=== PATIENT | female | born 1995 | race Caucasian/White ===

== ENCOUNTER 2023-08-20 12:40 | Outpatient (CLI) | payer OTHER, SELFPAY ==
--- NOTE | 2023-08-20 13:00 | CRLHL7_ITS ---
For Patients: As a result of the Century Cures Act, medical imaging exams and procedure reports are released immediately into your electronic medical record. You may view this report before your referring provider. If you have questions, please contact your health care provider. INDICATION: Evaluate anatomy. COMPARISON: none TECHNIQUE: Real time valero scale imaging of the fetus was performed as well as color Doppler analysis of the umbilical vessels. FINDINGS: Sonographic imaging demonstrates a single living intrauterine gestation. Fetus demonstrates a regular cardiac rate of 152 beats per minute. Fetus has a variable position. The placenta lies posteriorly without evidence of placenta previa. Amniotic fluid volume appears normal. Single deepest vertical pocket: 5.8 cm. The cervix is closed and measures 4.1 cm in length. The composite ultrasound gestational age is calculated at 20 weeks 2 days with an estimated sonographic due date of 01/05/2024. The estimated weight is 403 grams which lies at the 89th %. The following biometric measurements were obtained: Biparietal diameter: 4.6 cm/20 weeks 0 days 39th% Head circumference: 17.6 cm/20 weeks 1 day 34th% Abdominal circumference: 16.7 cm/21 weeks 5 days 86th% Femur length: 3.5 cm/20 week 6 days 63rd% The HC/AC ratio measures: 1.06 range (1.07-1.25) On anatomic survey, there is a normal appearance of the cerebral ventricles, cavum septi pellucidi, cisterna magna and cerebellum. The nose, lips, and facial profile appear normal. The cervical, thoracic and lumbar spine are well visualized and appear normal. There is a normal four-chamber heart view and the left and right ventricular outflow tracts appear normal. The diaphragm and stomach appear normal. The kidneys and bladder also appear normal. There is a normal three-vessel cord and cord insertion site. The four extremities appear normal. IMPRESSION: Normal OB ultrasound exam with concordance of clinical and sonographic dating. No intrinsic abnormalities noted on anatomic survey. Dictated by Ant Kaba MD @ 08/20/2023 3:11:28 PM (Electronically Signed)
== END 2023-08-20 12:41 | disposition home or self-care (01) ==
LOC: US 12:41
PROVIDERS: Visit Provider Advanced Practice Midwife
DX: Z34.92 Encounter for supervision of normal pregnancy, unspecified, second trimester (principal); Z3A.20 20 weeks gestation of pregnancy
CPT/HCPCS: 76805

== ENCOUNTER 2023-08-27 10:51 | Outpatient (CLI) | payer OTHER, SELFPAY ==
[2023-08-27 11:10] VITALS: RESP 18; TEMP 37.3
[2023-08-27 11:15] VITALS: PULSE 111; O2SAT 95
[2023-08-27 11:16] VITALS: BP 107/59; PULSE 115
[2023-08-27 12:00] LABS: Appearance Urine Clear (Clear); Bilirubin Urine Negative (Negative); Blood Urine Negative (Negative); Color Urine Yellow (Yellow); Glucose Urine Negative (Negative); Ketones Urine 2+ (Negative); Leukocyte Esterase Urine Trace (Negative); Nitrite Urine Negative (Negative); Protein Urine Negative (Negative); Specific Gravity Urine 1.015 (1.000-1.030); Urobilinogen Urine 0.2 (0.2-1.0)
[2023-08-27] MEDS: LACTATED RINGERS 1000 ML 1,000 ML IV (12:03)
[2023-08-27 12:21] LABS: RBC Urine 0-2 (0-2); WBC Urine 0-2 (0-5)
[2023-08-27 12:37] LABS: Amnisure Rom* Negative
[2023-08-27 13:02] LABS: PCR FLU A POSITIVE PCR FLU A (Negative); PCR FLU B Negative PCR FLU B (Negative); PCR RSV Negative PCR RSV (Negative); SARS PCR* Negative SARS-CoV-2 (Negative)
[2023-08-27 13:17] VITALS: BP 102/59; PULSE 98; RESP 16; TEMP 37
[2023-08-27 13:18] VITALS: PULSE 90; O2SAT 100
--- NOTE | 2023-08-27 14:32 | PC.OBNST ---
NST Note NST Note Start: 08/27/23 11:17 Freq: ONCE Status: Active Protocol: Document 08/27/23 14:22 MMB (Rec: 08/27/23 14:25 MMB [id number]) NST Note 2 Para (# of births) 1 EDC 01/05/24 Gestational Age In Weeks & Days 21 Weeks & 2 Days Patient Presented with Complaint(s) of Contractions/cramping,Leaking fluid,Other Other Complaints body aches Reactive No Appropriate for Gestational Age Yes RN Vinny Blount RN Date 08/27/23 Reactive No Appropriate for Gestational Age Yes LIZ Rajput RN OB NST charge Yes Complete NST Note via Write Note Yes The provider's electronic signature indicates the NST is reactive/appropriate for gestational age. *Note to provider: If an addendum is required, open the patient's chart and click on the note under the Nurse/Allied Health tab.
== END 2023-08-27 13:40 | disposition home or self-care (01) ==
LOC: OB OUT 10:53 → OB 10:53
PROVIDERS: Visit Provider Advanced Practice Midwife
DX: O47.02 False labor before 37 completed weeks of gestation, second trimester (principal); Z3A.21 21 weeks gestation of pregnancy
CPT/HCPCS: 59025; 81003; 81015; 84112; 87086; 87631; G0463; J7120

== ENCOUNTER 2023-10-13 10:03 | Outpatient (CLI) | payer OTHER, SELFPAY | END 2023-10-13 10:04 | disposition home or self-care (01) | LOC: NFLDREF 10-18 06:47 | PROVIDERS: Visit Provider Advanced Practice Midwife | DX: Z34.83 Encounter for supervision of other normal pregnancy, third trimester (principal) | CPT/HCPCS: 86592 ==

== ENCOUNTER 2023-11-09 14:17 | Outpatient (CLI) | payer OTHER, SELFPAY | END 2023-11-09 14:18 | disposition home or self-care (01) | PROVIDERS: PCP Advanced Practice Midwife; Visit Provider Advanced Practice Midwife | DX: O99.713 Diseases of the skin and subcutaneous tissue complicating pregnancy, third trimester (principal); L29.9 Pruritus, unspecified; Z3A.31 31 weeks gestation of pregnancy | CPT/HCPCS: 82239; 84450; 84460 ==

== ENCOUNTER 2023-12-08 13:51 | Outpatient (CLI) | payer OTHER, SELFPAY ==
[2023-12-09 15:10] LABS: Strep B DNA Probe Negative (Negative)
[2023-12-10 01:36] LABS: Strep B Susceptibility Needed? No
== END 2023-12-08 13:52 | disposition home or self-care (01) ==
PROVIDERS: Visit Provider Advanced Practice Midwife
DX: Z34.93 Encounter for supervision of normal pregnancy, unspecified, third trimester (principal); O99.719 Diseases of the skin and subcutaneous tissue complicating pregnancy, unspecified trimester; L29.9 Pruritus, unspecified; Z3A.36 36 weeks gestation of pregnancy
CPT/HCPCS: 82239; 84450; 84460; 87081; 87653

== ENCOUNTER 2023-12-13 11:57 | Outpatient (CLI) | payer OTHER, SELFPAY ==
[2023-12-13 12:25] VITALS: BP 94/53; PULSE 87; PULSE 94; O2SAT 99
[2023-12-13 13:29] LABS: Basophils Absolute Auto 0.01 K/uL (0.00-0.30); Basophils Percent Auto 0.1 % (0.0-3.0); Eosinophils Absolute Auto 0.03 K/uL (0.00-0.50); Eosinophils Percent Auto 0.4 % (0.0-7.0); Hematocrit 37.7 % (33.0-51.0); Hemoglobin* 12.3 gm/dL (12.0-16.0); Immature Granulocytes Abs Auto 0.09 K/uL (0.00-0.30); Immature Granulocytes Pct Auto 1.1 %; Lymphocytes Absolute Auto 2.16 K/uL (0.90-2.90); Lymphocytes Percent Auto 26.2 % (20-44); Mean Corpuscular HGB Conc 33 gm/dL (32-36); Mean Corpuscular Hemoglobin 29 pg (26-34); Mean Corpuscular Volume 89 fL (80-100); Monocytes Percent Auto 7.4 % (0.0-11.0); Neutrophils Absolute Auto 5.34 K/uL (1.7-7.0); Neutrophils Percent Auto 64.8 % (42.0-72.0); Platelet Count* 182 K/uL (140-440); RDW Coefficient of Variation % 13.6 % (11.5-15.5); Red Blood Count 4.22 m/uL (4.00-5.20); White Blood Count* 8.24 K/uL (4.50-11.00)
[2023-12-13 13:31] LABS: Slide Review Reflex No
[2023-12-13 13:32] LABS: Alanine Aminotransferase* 20 U/L (4-35); Aspartate Amino Transferase* 32 U/L (12-35); Bilirubin Total* 0.9 mg/dL (0.1-1.5)
--- NOTE | 2023-12-13 16:24 | PM.OBLDTN ---
OB - Triage/Final Diagnosis Visit Information Date Seen: 12/13/23 Date of evaluation: 12/13/23 Narrative: Tania is a 28 year old 2 para 1 at 36.5 weeks gestation by LMP, who presents with itching on her hands and feet. She presented to clinic last week with this same complaint and her labs were WNL. She states that overnight her itching increased to where it was bothersome and preventing her from going back to sleep after waking. She denies other pain, concerns or itching other places. No visible rash is present. She is appreciating good movement. She is having some contractions that are uncomfortable but no increasing in frequency or intensity over the last couple of days. She is johnathon every 2-5 minutes irregularly but denies increase in pain and states that she isn't feeling all of the contractions. Labs today was also normal but AST and ALT were slightly increased. Bile acids were not available and she is aware that we will call if they are elevated. She has a previously scheduled appointment on . We discussed in depth monitoring movement and to call if it is decreased, she develops other symptoms or has an change or increase in itching. Discussed that if she continues with symptoms or labs are elevated that an IOL could be recommended at 37-38 weeks. Briefly reviewed IOL. Evaluation Laboratory results: Laboratory Tests 12/13/23 Range/Units 12:52 WBC 8.24 (4.50-11.00) K/uL RBC 4.22 (4.00-5.20) m/uL Hgb 12.3 (12.0-16.0) gm/dL Hct 37.7 (33.0-51.0) % MCV 89 (80-100) fL MCH 29 (26-34) pg MCHC 33 (32-36) gm/dL RDW Coeff of Viraj 13.6 (11.5-15.5) % Plt Count 182 (140-440) K/uL Neut % (Auto) 64.8 (42.0-72.0) % Lymph % (Auto) 26.2 (20-44) % [place] % (Auto) 7.4 (0.0-11.0) % Eos % (Auto) 0.4 (0.0-7.0) % Baso % (Auto) 0.1 (0.0-3.0) % Neut # (Auto) 5.34 (1.7-7.0) K/uL Lymph # (Auto) 2.16 (0.90-2.90) K/uL [place] # (Auto) 0.60 (0.00-0.90) K/UL Eos # (Auto) 0.03 (0.00-0.50) K/uL Baso # (Auto) 0.01 (0.00-0.30) K/uL Abs Immat Gran (auto) 0.09 (0.00-0.30) K/uL Imm/Tot Granulo (auto) 1.1 % Total Bilirubin 0.9 (0.1-1.5) mg/dL AST 32 (12-35) U/L ALT 20 (4-35) U/L Total Bile Acids Pending Vital signs: Vital Signs - 24 hr 12/13/23 12:25 Pulse Rate 94 Blood Pressure 94/53 L Pulse Oximetry 99 Fetus (Single) Heart Rate Baseline: 130 Halfway Variability: Moderate (6-25) Monitor Accelerations: Present Monitor Decelerations: None
--- NOTE | 2023-12-13 16:32 | PC.OBNST ---
NST Note NST Note Start: 12/13/23 12:18 Freq: ONCE Status: Active Protocol: Document 12/13/23 16:31 ABP (Rec: 12/13/23 16:32 ABP [id number]) NST Note 2 Para (# of births) 1 EDC 01/05/24 Gestational Age In Weeks & Days 36 Weeks & 5 Days Patient Presented with Complaint(s) of Other Other Complaints Itching of hands and feet Reactive Yes LIZ Perkins RN Date 12/13/23 Reactive Yes LIZ Bailon CNM Date 12/13/23 OB NST charge Yes Complete NST Note via Write Note Yes The provider's electronic signature indicates the NST is reactive/appropriate for gestational age. *Note to provider: If an addendum is required, open the patient's chart and click on the note under the Nurse/Allied Health tab.
[2023-12-14 15:46] LABS: Bile Acids, Total 2 umol/L (0-10)
== END 2023-12-13 14:20 | disposition home or self-care (01) ==
LOC: OB OUT 11:57 → OB 11:58
PROVIDERS: Visit Provider Advanced Practice Midwife
DX: O26.893 Other specified pregnancy related conditions, third trimester (principal); L29.9 Pruritus, unspecified; Z3A.36 36 weeks gestation of pregnancy
CPT/HCPCS: 36415; 59025; 82239; 82247; 84450; 84460; 85025; G0463

== ENCOUNTER 2023-12-16 14:10 | Outpatient (CLI) | payer OTHER, SELFPAY | END 2023-12-16 14:11 | disposition home or self-care (01) | PROVIDERS: Visit Provider Advanced Practice Midwife | DX: Z34.93 Encounter for supervision of normal pregnancy, unspecified, third trimester (principal) | CPT/HCPCS: 82239; 84450; 84460 ==

== ENCOUNTER 2023-12-20 12:41 | Outpatient (CLI) | payer OTHER, SELFPAY ==
[2023-12-20 12:42] VITALS: BP 109/70; PULSE 82; RESP 16; TEMP 37.2; O2SAT 98
[2023-12-20 12:44] VITALS: PULSE 237; O2SAT 81
[2023-12-20 12:45] VITALS: BP 109/70; PULSE 85; PULSE 88; O2SAT 98
[2023-12-20 13:38] LABS: Alanine Aminotransferase* 13 U/L (4-35); Aspartate Amino Transferase* 31 U/L (12-35)
--- NOTE | 2023-12-20 14:22 | PM.OBLDTN ---
OB - Triage/Final Diagnosis Visit Information Time Seen by Provider: 14:23 Date Seen: 12/20/23 Date of evaluation: 12/20/23 Narrative: Tania is a 28 year old 2 para 1 at 37.5 weeks gestation by LMP, who presents with increase in itching in her hands and feet overnight. She states that it is only mild and intermittent during the day but increases at night and makes sleep difficult. She feels that it was worse last night. Repeat labs today that were available were normal. She is aware that the bile acids will not return for about 72 hours. Again reviewed kick counts and to be seen again with increased itching. She has an IOL planned for 39.0 weeks. We discussed trying Benadryl for sleep at night and if this is not effective can consider a Vistaril prescription. Questions answered. She is having some contractions but feels them only as a tightening and denies them increasing in frequency or intensity. Offered a SVE but she declines at this time. Reactive tracing obtained. Evaluation Laboratory results: Laboratory Tests 12/20/23 Range/Units 13:16 AST 31 (12-35) U/L ALT 13 (4-35) U/L Total Bile Acids Pending Vital signs: Vital Signs - 24 hr 12/20/23 12:42 12/20/23 12:44 12/20/23 12:45 Temperature 98.9 F Pulse Rate 85 Respiratory Rate 16 Blood Pressure 109/70 109/70 Pulse Oximetry 98 81 L 98 Fetus (Single) Heart Rate Baseline: 125 Group Home Variability: Moderate (6-25) Monitor Accelerations: Present Monitor Decelerations: None Final Diagnosis (1) Pruritus of in third trimester: Status: Acute
[2023-12-21 23:01] LABS: Bile Acids, Total 3 umol/L (0-10)
--- NOTE | 2023-12-30 13:48 | PC.OBNST ---
NST Note NST Note Start: 12/20/23 12:37 Freq: ONCE Status: Discharge Protocol: Document 12/20/23 15:35 WK (Rec: 12/20/23 15:37 WK [id number]) NST Note 2 Para (# of births) 1 EDC 01/05/24 Gestational Age In Weeks & Days 37 Weeks & 5 Days Patient Presented with Complaint(s) of Other Other Complaints Itching hands and feet that worsen at night. Reactive Yes RN Shama RNC Date 12/20/23 Reactive Yes RN Jessie RNC Date 12/20/23 OB NST charge Yes Complete NST Note via Write Note Yes The provider's electronic signature indicates the NST is reactive/appropriate for gestational age. *Note to provider: If an addendum is required, open the patient's chart and click on the note under the Nurse/Allied Health tab.
== END 2023-12-20 14:45 | disposition home or self-care (01) ==
LOC: OB OUT 12:41 → OB 12:43
PROVIDERS: Visit Provider Advanced Practice Midwife
DX: O99.713 Diseases of the skin and subcutaneous tissue complicating pregnancy, third trimester (principal); L29.9 Pruritus, unspecified; Z3A.37 37 weeks gestation of pregnancy
CPT/HCPCS: 36415; 59025; 82239; 84450; 84460; G0463

== ENCOUNTER 2023-12-29 07:08 | Inpatient (IN) | payer OTHER, SELFPAY ==
[2023-12-29] VITALS (21 sets, daily range): BP systolic 106–155; BP diastolic 56–76; PULSE 67–203; RESP 12–22; TEMP 36.6–37.4; O2SAT 79–100; BMI 24.3
--- NOTE | 2023-12-29 08:52 | P.LDBA_ITS ---
Subjective History of Present Illness Time Seen by Provider: 08:53 Date Seen: 12/29/23 Narrative: Tania is being admitted to Labor and Delivery for IOL. She has had symptoms of cholestasis for the last few weeks that is increasingly getting worse although her labs have remained stable. She is a 28 year old at 39.0 weeks gestation. Her full history and physical was dictated by Lucia Hernandez CNM on 12/23/23. Please see this for details. Her cervical exam today was mostly unchanged from earlier in the week although she may be slightly more effaced. We discussed options including Cytotec, AROM and Pitocin. Discussed that she likely doesn't need Cytotec but that it could still be considered if she desired. Risks and benefits of each were discussed in depth. She would like to proceed with Pitocin titration and consider AROM later if needed. Specific Issues/Plans : [facility] H&P done by Lucia Hernandez CNM on 12/23/23 Transfer at 15 6/7 weeks from [facility] 1. Hx of Shoulder dystocia, 2 mins 8 lb 6 oz Resolved w/ [place], [place] and Suprapubic No injury 2.Anxiety and Depression Was on Lexapro 10 mg previously 3. MMR non-immune Recommend 4. Remote hx of Chlamydia not screened this at prior practice, declines at tx ob; negative in previous 5. Influenza A at 21 weeks 6. Pruritus of hands/feet at night Cholestasis labs collected at 31 wks for itching. Bile acids 4. Repeat labs 12/07: bile acids 5 12/12: bile acids 2 Weekly NSTs until delivery. NST on 12/26, rpt labs and exam to see if she should come night before planning elective IOL at 39 wks 12/28 Covid: Tdap 11/09/23 OB Labs (05/20/2023): Blood type: B+, antibody screen negative. Hgb: 13.5 Platelets: 200 Rubella: Non-immune, NEEDS MMR Varicella: Immune RPR: non-reactive HBsAg: non-reactive Hep C: negative HIV: negative UC: negative GC/Chlamydia: not completed TSH (): 2.8 Pap (02/2022): NILM Genetic screening: n/a IMAGINst trimester: 05/20/2023: 7.1 weeks by LMP, 7.2 weeks by US; MARIEL 01/05/2024 by LMP consistent with 1st trimester US. FHR 176. PK 0.8 x 0.3 x 1.4 cm Others: 06/17/2023: Follow-up for PK in . PK no longer visualized. FHR 167. OB - Problem Based A/P Additional Plan (1) Encounter for induction of labor: Status: Acute (2) Pruritus of in third trimester: Status: Acute (3) Anxiety and depression: Status: Acute Plan ASSESSMENT:? at 39.0 weeks gestation? GBS negative? ?complicated by: pruritus of hands and feet, anxiety, depression, history of 2 minute shoulder dystocia, rubella non-immune, and remote history of chlamydia. Blood type:?B+ PLAN:? 1. Reviewed risks and benefits of IOL with Pitocin vs AROM. Pt prefers Pitocin. AROM to follow if needed.? 2. Candidate for analgesia of choice. Planning unmedicated .? 3. Anticipate NVD? 4. IV in place for Pitocin titration. 5. Continuous monitoring per Pitocin titration protocol. Delivery/Labor/Induction Plan Plan: induction Induction method: per pitocin protocol OB Result Labs Blood Type: B (+) positive Rubella: nonimmune RPR/VDLR: nonreactive GBS Status: negative HBsAG: negative OB Exam Physical Exam Vital signs: Temp Pulse Resp BP Pulse Ox 98.2 F 100 12 107/65 95 12/29/23 07:28 12/29/23 08:05 12/29/23 07:28 12/29/23 08:05 12/29/23 07:28 Narrative: Psychiatric:? Alert and oriented x3? HEENT:? Normocephalic, atraumatic? Neck:? Supple without adenopathy or thyromegaly? Lungs:? Clear to auscultation bilaterally? Heart:? Regular rate and rhythm, no murmur, rub or gallop? Abdomen:? Soft, nontender, and gravid? Extremities:? No edema or erythema? Detailed Labor and Delivery Exam Patient Gravid: Yes Dilation (cm): 2 Effacement (%): 80 Cervix position: posterior (maternal right) Contraction Frequency: occasionally Contraction intensity: Mild Fetus (Single) Station: -2 Amniotic Membrane Status: intact Heart Rate Baseline: 140 Monitor Accelerations: Present Monitor Decelerations: None Leave Coordinator Variability: Moderate (6-25)
[2023-12-29] MEDS: OXYTOCIN 30 unit/500 ML in NS 30 UNIT/500 ML BAG IVPB (09:07)
[2023-12-29] MEDS: LACTATED RINGERS 1000 ML 1,000 ML 125 ML IV (09:07)
--- NOTE | 2023-12-29 14:35 | P.OBPN_ITS ---
Subjective Time Seen by Provider: 14:30 Date Seen: 12/29/23 Narrative: Tania is on Pitocin titrating up per protocol. She is johnathon every 2-5 minutes somewhat irregularly. She is feeling the contractions pretty intensely at this time and breathing with each one but coping well at this point. SVE was performed and she is changed to 5cm/80%/0 station with a bulging bag. Offered AROM but she declines at this. Will remain at 6ml/hr of Pitocin for now unless her contractions space out again. She is working on the labor warm up circuit with the RN. Objective Vital Signs: Last Vital Signs Temp 98 F 12/29/23 12:08 Pulse 83 12/29/23 12:08 Resp 16 12/29/23 12:08 BP 112/66 12/29/23 12:08 Pulse Ox 95 12/29/23 07:28 Pelvic Exam Dilation (cm): 5 Effacement (%): 80 Station: 0 Contractions Monitor mode: External Contraction Frequency: 2-5 Contraction pattern: Regular Contraction intensity: Strong/Firm Pitocin Rate (mU/min): 6 Assessment Assessment: induction ongoing Station: -2 Status: Category l Heart Rate Baseline: 130 Aviation Electronic Warfare Operator Variability: Moderate (6-25) Monitor Accelerations: Present Monitor Decelerations: None Plan Plan: ASSESSMENT:? at 39.0 weeks gestation? GBS negative? ?complicated by: pruritus of hands and feet, anxiety, depression, history of 2 minute shoulder dystocia, rubella non-immune, and remote history of chlamydia. Blood type:?B+ PLAN:? 1. On Pitocin titration per protocol. Can consider AROM if needed.? 2. Candidate for analgesia of choice. Planning unmedicated .? 3. Anticipate NVD? 4. IV in place for Pitocin titration. 5. Continuous monitoring per Pitocin titration protocol.
[2023-12-29] MEDS: OXYTOCIN 30 unit/500 ML in NS 30 UNIT/500 ML BAG 306 UNIT IVPB (17:09)
[2023-12-29] MEDS: miSOPROStoL 800 MCG/4 TABLET PR (17:17)
--- NOTE | 2023-12-29 17:36 | W.PM.OBVAGDE ---
OB Procedure Vag Delivery Mother Details Mother Details: The patient is a 28 year-old, 2, Para 1, admitted on 12/29/23 at 39.0 weeks gestation. : 2 Para: 2 Weeks Gestation: 39.0 Admission Date: 12/29/23 Additional Details Amniotic Membrane Status: SROM Amniotic Membrane Rupture Date: 12/29/23 Amniotic Membrane Rupture Time: 16:03 Amniotic Membrane Fluid Description: Clear Analgesia/Anesthesia Type: None Waterbirth: No Pitcoin: Yes (IOL and AMTSL) Intrapartal Events: Labor Induction Induction Method: per pitocin protocol Labor Onset: 14:30 Complete: 16:30 Pushin:36 Heart: heart tones during second stage were category 2. Baseline 125, + accels, moderate variability, occasional variable decelerations with pushing. Delivery Details Delivery Date: 12/29/23 Delivery Time: 17:08 Route of delivery: Infant Gender: Female Viability: Alive; Heart Rate Present Position at Delivery: OA Delivery Details: Patient was admitted for IOL for pruritus of the hands and feet and progressed normally with Pitocin titration. SROM noted at 1430 with clear fluid. Patient was complete at 1630 and pushing at 1636. of a viable female at 1708 in hands and knees in the bed. Vertex delivered OA with an arm over the chest. No nuchal cord or shoulder. Body delivered easily and without incident. passed to mothers abdomen with a vigorous cry. Cord was clamped and cut at 2-3 minutes of life due to a very short umbilical cord and a gush of blood with mom consent. APGARS were 8 at one minute and 9 at five minutes respectively. Mouth was bulb suctioned. Intact placenta with a 3 vessel cord delivered spontaneously at 1715. Fundus firm. No lacerations were identified but the labia is edematous. QBL 350mL in the bag and 365mL weighted on pads for a total of 715mL. Mother and baby stable; mother plans to breastfeed. Infant weight pending.? 1 Minute Interval Total Score: 8 5 Minute Interval Total Score: 9 Additional Details Shoulder Dystocia: No Placenta Delivery Time: 17:15 Placental Delivery Description: Spontaneous Procedure Done: Global Blood Loss: 715 (350 in drape and 365 on pad weighed ) Laceration: None Episiotomy Description: None Blood Loss Measurement Type: QBL Bakri Used: No Sponge/Need Count Correct: Yes Cord Vessel Description: 3 Vessels Event Summary Status: Mother and infant were stable after delivery. Disposition: floor
[2023-12-29] MEDS: ACETAMINOPHEN 500 MG TABLET 1000 MG PO (17:47)
[2023-12-29] MEDS: IBUPROFEN 600 MG TABLET PO (20:49)
[2023-12-30 02:30] VITALS: BP 113/67; PULSE 86; RESP 16; TEMP 37.3; O2SAT 97
[2023-12-30] MEDS: IBUPROFEN 600 MG TABLET PO ×2 (02:46→15:40)
[2023-12-30 05:45] VITALS: BP 104/70; PULSE 78; RESP 16; TEMP 37.4; O2SAT 96
[2023-12-30] MEDS: DOCUSATE SODIUM 100 MG CAPSULE PO (07:34)
[2023-12-30] MEDS: ACETAMINOPHEN 500 MG TABLET 1000 MG PO (07:34)
[2023-12-30 07:48] VITALS: BP 106/73; PULSE 83; RESP 16; TEMP 36.6; O2SAT 98
[2023-12-30 11:35] VITALS: BP 100/67; PULSE 78; RESP 16; TEMP 36.7; O2SAT 98
--- NOTE | 2023-12-30 14:25 | P.DS_ITS ---
DS: Providers Provider Date Seen: 12/30/23 Date of admission: 12/29/23 07:08 Primary care physician: Not a Local Provider Admitting Clinician: Rosario Bailon CNM Attending Physician on discharge: Adele Arzate CNM DS: Diagnosis Discharge Diagnosis (1) care and examination immediately after delivery: Status: Acute (2) Lactating mother: Status: Acute (3) Anxiety and depression: Status: Acute Exam Narrative: Exam Narrative: GENERAL APPEARANCE:? normal affect, alert, no distress MOOD:? appropriate CHEST:? clear to auscultation HEART:? regular rate and rhythm ABDOMEN:? soft, non-tender the uterine fundus is 1 below Umbilicus, Midline and is appropriate for the stage of recovery. PERINEUM:? mild edema of the perineum. EXTREMITIES:? normal and no edema Const: Vital Signs, click to edit/add: Vital Signs - 24 hr 12/29/23 15:08 12/29/23 16:11 12/29/23 16:11 Temperature 98 F Pulse Rate Pulse Rate [Blood Pressure Cuff] Respiratory Rate Blood Pressure Blood Pressure [Ri ght Arm] Pulse Oximetry 100 100 Oxygen Delivery Me od 12/29/23 16:11 12/29/23 16:23 12/29/23 16:40 Temperature Pulse Rate 85 Pulse Rate [Blood Pressure Cuff] Respiratory Rate 22 Blood Pressure 107/57 L Blood Pressure [Ri ght Arm] Pulse [facility]ximetry [facility]08 12/29/23 17:08 12/29/23 17:13 Temperature Pulse Rate 110 H Pulse Rate [Blood Pressure Cuff] Respiratory Rate Blood Pressure 110/76 Blood Pressure [Ri ght Arm] Pulse Oximetry 93 79 [facility] 17:13 12/29/23 17:28 12/29/23 17:28 Temperature 99.4 F Pulse Rate Pulse Rate [Blood Pressure Cuff] 110 H Respiratory Rate 16 Blood Pressure 111/70 Blood Pressure [Ri ght Arm] 110/76 111/70 Pulse Oximetry [facility] 17:35 12/29/23 17:35 12/29/23 17:44 Temperature Pulse Rate 100 67 Pulse Rate [Blood Pressure Cuff] 100 Respiratory Rate Blood Pressure 147/67 H 118/59 L Blood Pressure [Ri ght Arm] 147/67 H Pulse Oximetry Oxygen Delivery Me thod 12/29/23 17:44 12/29/23 17:58 12/29/23 17:58 Temperature Pulse Rate 81 Pulse Rate [Blood Pressure Cuff] 67 81 Respiratory Rate Blood Pressure 114/60 Blood Pressure [Ri ght Arm] 118/59 L 114/60 Pulse Oximetry Oxygen Delivery Me thod 12/29/23 18:13 12/29/23 18:13 12/29/23 18:28 Temperature 99.1 F Pulse Rate 116 H 93 Pulse Rate [Blood Pressure Cuff] 116 H Respiratory Rate Blood Pressure 114/67 115/59 L Blood Pressure [Ri ght Arm] 114/67 Pulse Oximetry Oxygen Delivery Me thod 12/29/23 18:28 12/29/23 18:56 12/29/23 18:57 Temperature Pulse Rate 91 Pulse Rate [Blood Pressure Cuff] 93 91 Respiratory Rate Blood Pressure 118/56 L Blood Pressure [Ri ght Arm] 155/59 H 118/56 L Pulse Oximetry Oxygen Delivery [place] thod 12/29/23 19:13 12/29/23 19:28 12/29/23 19:43 Temperature Pulse Rate 100 88 Pulse Rate [Blood Pressure Cuff] Respiratory Rate Blood Pressure 113/64 109/63 111/64 Blood Pressure [Ri ght Arm] Pulse Oximetry Oxygen Delivery Me thod 12/29/23 19:43 12/29/23 21:00 12/30/23 02:30 Temperature 98.8 F 99.1 F Pulse Rate 104 H Pulse Rate [Blood Pressure Cuff] 74 86 Respiratory Rate 18 16 Blood Pressure Blood Pressure [Ri ght Arm] 106/68 113/67 Pulse Oximetry 98 97 Oxygen Delivery Me thod Room Air Room Air 12/30/23 05:45 12/30/23 07:48 12/30/23 11:35 Temperature 99.3 F 97.9 F 98.1 F Pulse Rate Pulse Rate [Blood Pressure Cuff] 78 83 78 Respiratory Rate 16 16 16 Blood Pressure Blood Pressure [Ri ght Arm] 104/70 106/73 100/67 Pulse Oximetry 96 98 98 Oxygen Delivery Me thod Room Air Room Air Room Air In review of BP's it appears there are some duplicate entries during recovery. One appears to be incorrectly entered making the patient look like she has had some elevated BP's. This was reviewed with another nurse who agrees. Documenting provider has reviewed patient's vital signs: yes OB - DS: Summary Hospital Course Hospital Course: Tania is a 28 y.o. G 2 P 2 who was admitted to [facility] for induction of labor for suspected cholestasis. ?She had a NVD that was uncomplicated. The patient feels well. She reports that the itching is gone and resolved after delivery.?The pain is well controlled with current medications. ?She has no new complaints. ?She is breast feeding and reports things are going well. the patient has done well.? Vitals have been stable.? She has remained afebrile.? Has a good appetite, is tolerating a general diet. ?She is voiding without difficulty.? She is passing gas and has not had a bowel movement.? She is ambulating and denies any dizziness.? Has small amount of rubra lochia. Patient initially desired to stay but mid afternoon decided they preferred to go home. Their older son is staying overnight at a grandparents house and they felt this would help them transition home with a without their other son their. Problems: none plan: Discharge home with baby. Follow up in 2 weeks and 6 weeks. , may see if needed Hgb 11.0. Peripartum Data Infant delivery method: Vaginal Laceration description: None complications: none [place] Infant Gender: Female Discharge Plan: Home Status at Discharge Functional status at discharge: independent ambulation Overall status at discharge: patient is progressing back to baseline Time Spent with Patient Time attestation: Total time spent providing and/or coordinating discharge services: Time spent: Less than 30 minutes Discharge Plan Discharge Disposition: Home, Self-Care Date of Admission: 12/29/23 07:08 Attending Provider on Discharge: Adele Arzate Primary Care Provider: Provider,Not a Local Condition: Stable Anticipated Discharge Date/Time: 12/30/23 17:30 Discharge Medications: New docusate sodium 100 mg Capsule 100 mg PO DAILY PRN (Reason: Constipation) Qty: 0 0RF ibuprofen 600 mg Tablet 600 mg PO Q6H PRNQty: 0 0RF acetaminophen 500 mg Tablet 1,000 mg PO Q6H PRNQty: 0 0RF Continued PNV 119-iron fum-folic acid 29 mg iron- 1 mg tablet 1 tab PO DAILY Discharge Orders: Discharge Order (Routine); Ordered 12/30/23 Ordered By: Adele Arzate Patient Education: OB Over the Counter Medication Information, OB Vaginal/Breast Feeding Additional Instructions: Discharge instructions were reviewed with the patient including signs and symptoms of infection and home going medications Nothing vaginally for 6 weeks: no tampons or intercourse Do not drive while taking narcotic pain medication(s) Off Work or School for 6 weeks 2-week visit: discuss infant feeding concerns, review control o ptions and screen for anxiety/depression. 6-week visit for an annual exam. consultation services are available to all mothers and babies for the first year after delivery.? To make an appointment, please call [phone]. Activity Level: Activity as Tolerated Discharge Diet: Regular Follow Up Appointments: [facility] [Provider Group] Forms: [employer] Info Instructions
--- NOTE | 2023-12-30 14:29 | PC.NURSE ---
This RN was asked by LANA Angulo to review recovery vitals as it looked like the monitor was capturing the blood pressures and the nurse was also entering them - which led to a misentry on the nurse's part. Agree with Adele that the nurse had entered a high blood pressure incorrectly.
--- NOTE | 2023-12-30 16:19 | PM.EN ---
Chart Event Note Chart Event Note: I was called to patient room to assess her after passing a significant amount of membrane like tissue. Patient was calm and without any complaints. She reports she has been having some fullness/pressure since after delivery. She was up to bathroom and after voiding felt increased pelvic pressure. She felt down and felt some tissue protruding from her vagina. She called her nurse for assistance and a significant amount of membrane/tissue delivered with a moderate sized clot. Membranes were examined and appear to be amniotic sac, no notable placental fragments attached. Patient reports the pelvic pressure and discomfort she was having almost immediately went away. Bleeding has since been minimal. Upon exam, no additional membranes or tissue visible protruding from the perineum. Fundal massage done to try to assess for retained produces, scant bleeding with fundal massage. Uterus is firm and non-tender. Patient does desire to go home. We discussed monitoring vs discharge. At this time, she has no additional bleeding, pain, or temperature. I recommend she get up and walk around and void. If bleeding remains scant she could discharge home. Reviewed warning s/sx of retained placenta including increased or heavy vaginal bleeding, abdominal pain and cramping that is worsening, s/sx of infection, of symptomatic blood loss. With this, she would be recommended to call and present to the ED for evaluation. She feels comfortable monitoring. BP has been stable. No additional risk factors identified at this time. Placenta is noted as intact at time of delivery and RN reports it did not seem there was any trailing membranes after delivery. If patient remains stable, she is okay to discharge home today.
== END 2023-12-30 19:07 | disposition home or self-care (01) | DRG 806 ==
PROVIDERS: Admitting Provider Advanced Practice Midwife; Visit Provider Advanced Practice Midwife
DX: O26.643 Intrahepatic cholestasis of pregnancy, third trimester (principal); O72.1 Other immediate postpartum hemorrhage; Z37.0 Single live birth; O99.344 Other mental disorders complicating childbirth; F41.9 Anxiety disorder, unspecified; F32.A Depression, unspecified; O26.893 Other specified pregnancy related conditions, third trimester; L29.9 Pruritus, unspecified; Z3A.39 39 weeks gestation of pregnancy
CPT/HCPCS: 36415; 85018; A9270; J7120

== ENCOUNTER 2024-05-29 13:30 | Outpatient (RCR) | payer OTHER, SELFPAY | END 2024-08-16 12:48 | disposition home or self-care (01) | PROVIDERS: Visit Provider Advanced Practice Midwife | DX: M62.08 Separation of muscle (nontraumatic), other site (principal); R27.8 Other lack of coordination; M54.50 Low back pain, unspecified; Z51.89 Encounter for other specified aftercare | CPT/HCPCS: 97110; 97112; 97140; 97161 ==

== ENCOUNTER 2024-08-07 14:28 | Outpatient (CLI) | payer OTHER, SELFPAY ==
--- NOTE | 2024-08-07 14:45 | CRLHL7_ITS ---
For Patients: As a result of the Century Cures Act, medical imaging exams and procedure reports are released immediately into your electronic medical record. You may view this report before your referring provider. If you have questions, please contact your health care provider. INDICATION: Abnormal uterine bleeding COMPARISON: none TECHNIQUE: 2D valero scale and color Doppler images were acquired of the pelvis using a transabdominal and transvaginal approach. FINDINGS: Sonographic images demonstrate a normal size and smooth outer contour of the uterus. Uterus measures 8.6 cm in length by 4.5 cm in AP diameter by 6.3 cm in transverse dimension. The myometrium has a normal uniform echotexture. The endometrial lining appears diffusely thickened and measures 24 mm in composite thickness. The right ovary measures 4.8 x 2.1 x 2.7 cm in size and the left ovary measures 3.3 x 1.7 x 2.4 cm. The ovaries demonstrate normal arterial and venous blood flow on color Doppler analysis. There are no suspicious fluid collections within the cul-de-sac. IMPRESSION: Diffusely thickened endometrium measuring 2.4 cm. Dictated by Ant Kaba MD @ 08/07/2024 6:34:34 PM (Electronically Signed)
== END 2024-08-07 14:29 | disposition home or self-care (01) ==
LOC: US 14:29
PROVIDERS: Visit Provider Obstetrics & Gynecology
DX: N93.9 Abnormal uterine and vaginal bleeding, unspecified (principal); R93.89 Abnormal findings on diagnostic imaging of other specified body structures
CPT/HCPCS: 76830; 76856

== ENCOUNTER 2024-08-15 11:41 | Emergency (ER) | payer OTHER, SELFPAY ==
[2024-08-15 11:55] VITALS: BP 117/74; PULSE 85; RESP 16; TEMP 37; O2SAT 99; BMI 19.2
--- NOTE | 2024-08-15 12:03 | ED.GENADULT ---
HPI - General Adult General Chief complaint: Vaginal Bleeding Stated complaint: Menstrual Bleeding Time Seen by Provider: 08/15/24 11:48 History of Present Illness HPI narrative: Started period 08/13/24, wearing super tampon and regular pad and changing every 45m-1hr. No pain/ cramping, not dizzy. Had spotting entire month of July. Using condoms, negative test in clinic last month. . See [facility] note from July. 28-year-old woman presenting to the emergency department with concern of vaginal bleeding the setting of abnormal uterine bleeding. She is now 7 months . Had 2 regular periods until seen for this abnormal uterine bleeding about 10 days ago in [facility]. And looks like plan was for pelvic ultrasound and ibuprofen. Possibly IUD if necessary. After this appointment couple days later started taking 600 mg of ibuprofen daily. Began bleeding again with expected onset of her menses 2 days ago but yesterday afternoon was soaking through super tampon and into a pad on the our which has continued overnight. She is not having any abdominal pain. She is not feeling lightheaded. Pelvic ultrasound was done at about 20 days into her cycle and showed a thickened endometrium diffusely measuring 2.4 cm. Related Data Previous Rx's ?Medication ?Instructions ?Recorded medroxyprogesterone 10 mg tablet 10 mg PO DAILY 5 days #5 tabs 08/15/24 (Provera) ondansetron 4 mg disintegrating 4 mg PO DAILY PRN nausea and 08/15/24 tablet vomiting #10 tabs Allergies Allergy/AdvReac Type Severity Reaction Status Date / Time No Known Drug Allergies Allergy Verified 08/15/24 11:59 Review of Systems Status of ROS: Reports: 6 or more systems reviewed and unremarkable except as noted in History and below [facility] Medical History Ovarian cyst ?N83.209 - Unspecified ovarian cyst, unspecified side (ICD-10) Bladder infection ?N30.90 - Cystitis, unspecified without hematuria (ICD-10) Surgical History Hx of tonsillectomy ?Z90.89 - Acquired absence of other organs (ICD-10) Family History Maternal Grandmother Heart disease Maternal Grandfather Heart disease Father High blood pressure Mother Thyroid disease Social History Narrative: SOCIAL 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, 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 Lives with: Reyes Graham Pets: Two dogs, and cat Abuse: Denies past/present (Partner present) Special Diet: Denies Ok with a blood transfusion: yes Culture or baptist beliefs: denies RISK FACTORS Exercise Times/wk: Not routinely Depression/Anxiety: Not routinely seeing one but has one; Lexapro Seat Belt Use: Routinely Smoking: Denies past/present Alcohol/day: Denies while ; socially prior to Caffeine: 1 cup max Drug Use: Denies past/present MRSA: Denies What is your current living situation?: I presently have a place to live Problems where you live: no known problems In the past 12 months, utilities in danger of being shut off: no In past 12 months, lack of transportation kept you from medical appts, meetings, work, or getting things needed for daily living: no In the past 12 mos, have been you worried that your food would run out before you had money to buy more?: never true In the past 12 mos, the food you bought just didn't last and you didn't have money to buy more?: never true Smoking Status: Never smoker How often does anyone, including family, friends and others, physically hurt you: never How often does anyone, including family, friends and others, insult or talk down to you: never How often does anyone, including family, friends and others, threaten you with harm: never How often does anyone, including family, friends and others, scream or curse at you: never Exam Narrative: Exam Narrative: Very pleasant. Calm. Breathing easily. Lungs appear to be clear. Heart in regular rate and rhythm. She is well-perfused peripherally and without apparent edema. Mucous membranes not appear pale. Const: Vital Signs, click to edit/add: Vital Signs - 24 hr 08/15/24 11:55 Temperature 98.6 F Pulse Rate [Pulse Oximeter] 85 Respiratory Rate 16 Blood Pressure [Ri ght Upper Arm] 117/74 Pulse Oximetry 99 Oxygen Delivery Me thod Room Air Documenting provider has reviewed patient's vital signs: yes Course Vital Signs Vital signs: Initial Vital Signs Temperature 98.6 F 08/15/24 11:55 Temperature Source Temporal Artery Scan 08/15/24 11:55 Pulse Rate 85 08/15/24 11:55 Respiratory Rate 16 08/15/24 11:55 Blood Pressure 117/74 08/15/24 11:55 Blood Pressure Mean 88 08/15/24 11:55 Blood Pressure Position Sitting 08/15/24 11:55 Pulse Oximetry 99 08/15/24 11:55 Oxygen Delivery Method Room Air 08/15/24 11:55 Vital Signs Temperature 98.6 F 08/15/24 11:55 Pulse Rate 85 08/15/24 11:55 Respiratory Rate 16 08/15/24 11:55 Blood Pressure 117/74 08/15/24 11:55 Pulse Oximetry 99 08/15/24 11:55 Oxygen Delivery Method Room Air 08/15/24 11:55 Temperature 98.6 F 08/15/24 11:55 Pulse Rate 85 08/15/24 11:55 Respiratory Rate 16 08/15/24 11:55 Blood Pressure 117/74 08/15/24 11:55 Pulse Oximetry 99 08/15/24 11:55 Oxygen Delivery Method Room Air 08/15/24 11:55 Medical Decision Making MDM Narrative Medical decision making narrative: Would check hemoglobin. Absent increasing bleeding or alteration in vital signs would then review with OBGYN for further recommendations. May want progesterone therapy? Does have a history of migraines. Recheck of hemoglobin is 12.2. This is a little improvement from last hemoglobin that apparently was done . 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 Concur with treatment of Provera in the short-term and follow-up in clinic See patient discharge plan for further discussion Stay well-hydrated. Follow-up with clinic appointment later this week as scheduled. Be seen sooner for marked increase in bleeding such that you soaking through to heavy/overnight pads an hour for 2 consecutive hours, lightheadedness, shortness of breath. Per recommendations by OBGYN, will be initiating course of Provera. While probably not needed in this case, will also be sending in a prescription of Zofran for nausea that you can fill if you choose to. Medical Records Medical records reviewed: Yes I reviewed the patient's medical records Lab Data Lab results reviewed: Yes I reviewed the patient's lab results Labs: Lab Results 08/15/24 Range/Units 12:27 Hgb 12.2 (12.0-16.0) gm/dL Discharge Plan Discharge Clinical Impression: Abnormal uterine bleeding (AUB) Patient Disposition: Home, Self-Care Condition: Stable Instructions: Abnormal (Dysfunctional) Uterine Bleeding (ED) Additional Instructions: Stay well-hydrated. Follow-up with clinic appointment later this week as scheduled. Be seen sooner for marked increase in bleeding such that you soaking through to heavy/overnight pads an hour for 2 consecutive hours, lightheadedness, shortness of breath. Per recommendations by OBGYN, will be initiating course of Provera. While probably not needed in this case, will also be sending in a prescription of Zofran for nausea that you can fill if you choose to. Prescriptions: New medroxyprogesterone [Provera] 10 mg tablet 10 mg PO DAILY 5 Days Qty: 5 0RF ondansetron 4 mg tablet,disintegrating 4 mg PO DAILY PRN (Reason: nausea and vomiting) Qty: 10 0RF Follow Up/Referrals: Provider,Not a Local [Primary Care Provider] - Stand Alone Forms: [facility] Medical Info Instructions
[2024-08-15 12:32] LABS: Hemoglobin* 12.2 gm/dL (12.0-16.0)
== END 2024-08-15 13:18 | disposition home or self-care (01) ==
PROVIDERS: Emergency Provider Family Medicine
DX: N93.9 Abnormal uterine and vaginal bleeding, unspecified (principal)
CPT/HCPCS: 36415; 85018; 99283

== ENCOUNTER 2024-08-23 10:07 | Outpatient (CLI) | payer OTHER, SELFPAY ==
[2024-08-25 02:53] LABS: HPV Source Cervix; HPV, High Risk by TMA Not Detected
== END 2024-08-23 10:08 | disposition home or self-care (01) ==
PROVIDERS: Visit Provider Registered Nurse
DX: N93.9 Abnormal uterine and vaginal bleeding, unspecified (principal); Z12.4 Encounter for screening for malignant neoplasm of cervix; Z11.51 Encounter for screening for human papillomavirus (HPV)
CPT/HCPCS: 84443; 87624; 87625; 88141; 88142

== ENCOUNTER 2025-05-17 14:27 | Outpatient (CLI) | payer OTHER, SELFPAY | END 2025-05-17 14:28 | disposition home or self-care (01) | LOC: NFLDREF 14:28 | PROVIDERS: Visit Provider Physician Assistant | DX: N92.6 Irregular menstruation, unspecified (principal) | CPT/HCPCS: 84443 ==